=== PATIENT | female | born 1985 | race Two or more races ===

== ENCOUNTER 2016-09-10 15:03 | Emergency (ER) | payer SELFPAY ==
[2016-09-10] MEDS ORDERED: MAALOX/LIDO2%VISC/SIMETHICONE 40 ML BOT ONE (16:01)
[2016-09-10 16:15] LABS: BASO # 0.1 K/mm3 (0.0-0.2); EOS # 0.4 (0.0-0.5); EOS % 5.7 % (0.9-2.9); HEMATOCRIT 38.5 % (37.0-47.0); HEMOGLOBIN 12.7 gm/l (12.0-16.0); IMM NEUT% 0.2 % (0-1); LYMPH # 1.5 (1.0-4.8); LYMPH % 23.4 % (15-45); MEAN CELL VOLUME 91.7 fl (81.0-99.0); MEAN CORPUSCULAR HEMOGLOBIN 30.2 pg (27.0-31.0); MEAN PLATELET VOLUME 12.7 fl (7.4-10.4); MONO # 0.4 (0.0-0.8); MONO % 6.4 % (4-12); NEUT % 63.3 % (43-75); PLATELET COUNT 152 K/mm3 (130-400); RED CELL DISTRIBUTION WIDTH 13.2 % (11.5-14.5)
[2016-09-10 16:24] LABS: SPECIFIC GRAVITY 1.015 (1.001-1.030); URINE BILIRUBIN NEGATIVE (NEGATIVE); URINE BLOOD NEGATIVE (NEGATIVE); URINE GLUCOSE (UA) NEGATIVE (NEGATIVE); URINE LEUKOCYTE ESTERASE NEGATIVE (NEGATIVE); URINE NITRITE NEGATIVE (NEGATIVE); URINE PROTEIN NEGATIVE (NEGATIVE); URINE UROBILINOGEN NORMAL (0-1 mg/dl)
[2016-09-10 16:28] LABS: URINE APPEARANCE CLEAR; URINE COLOR STRAW
[2016-09-10 16:29] LABS: HCG,QUALITATIVE URINE NEGATIVE
--- NOTE | 2016-09-10 16:37 | US ---
ABDOMINAL-LIMITED: 09/10/2016 3:53 PM CLINICAL HISTORY: Right upper quadrant pain. Patient ate 6 hours ago.. STUDY: Limited right upper quadrant ultrasound COMPARISON: none FINDINGS: Gallbladder: Gallbladder appears contracted. Wall thickness: Normal Cholelithiasis: none Pericholecystic Fluid: none Sonographic Phillips's Sign: negative Bile ducts: Common duct measures 4 mm. Limited visualized Liver and RUQ structures: normal IMPRESSION: Gallbladder appears contracted. No sonographic findings of acute cholecystitis or cholelithiasis. Close clinical and radiographic follow-up are recommended. Report was uploaded to the electronic medical record at approximately 1633 hours on 09/10/2016.
[2016-09-10 16:47] LABS: ALB/GLOB RATIO 1.4 (>1.0); ALBUMIN 4.3 gm/dL (3.5-5.7); CALCIUM 9.5 mg/dL (8.6-10.3)
== END 2016-09-10 17:15 | disposition home or self-care (01) ==
LOC: ED 15:03
DX: O98.813 Other maternal infectious and parasitic diseases complicating pregnancy, third trimester (principal); H65.01 Acute serous otitis media, right ear